=== PATIENT | female | born 1995 | race Two or more races ===

== ENCOUNTER 2018-05-11 09:33 | Outpatient (CLI) | payer OTHER | END 2018-05-11 10:03 | disposition home or self-care (01) | LOC: RX STUDY 09:33 | DX: N13.70 Vesicoureteral-reflux, unspecified (principal); Q60.0 Renal agenesis, unilateral; Q63.2 Ectopic kidney; N18.4 Chronic kidney disease, stage 4 (severe) ==

== ENCOUNTER 2023-06-11 09:03 | Outpatient (CLI) | payer OTHER | END 2023-06-11 09:11 | disposition home or self-care (01) | LOC: RX STUDY 09:03 | DX: N39.0 Urinary tract infection, site not specified (principal); Q85.83 Von Hippel-Lindau syndrome ==